=== PATIENT | female | born 2000 | race Caucasian/White ===

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

== ENCOUNTER → 2020-03-04 | Outpatient (CLI) | payer BC ==
[~2020-03-04] MED LIST: ALL10TAB29 PO; ESCI10TA2; PROM25TA12 PO
[2020-03-04 16:40] LABS: BASO % 0.6 % (0.0-1.0); EOS # 0.2 10^3/uL (0.0-0.5); EOS % 2.9 % (0.0-3.0); HEMATOCRIT 40.6 % (36.0-47.0); HEMOGLOBIN 13.7 g/dl (12.0-15.5); LYMPH # 2.4 10^3/uL (1.5-5.0); LYMPH % 36.6 % (24.0-44.0); MEAN CORPUSCULAR HEMOGLOBIN 29.3 pg (27.0-33.0); MEAN CORPUSCULAR HGB CONC 33.7 g/dl (32.0-36.5); MEAN CORPUSCULAR VOLUME 86.9 fl (80.0-96.0); MONO # 0.7 10^3/uL (0.0-0.8); MONO % 11.2 % (0.0-5.0); NEUTROPHILS # 3.1 10^3/uL (1.5-8.5); NEUTROPHILS % 48.5 % (36.0-66.0); PLATELET COUNT, AUTOMATED 325 10^3/uL (150-450); RED BLOOD COUNT 4.67 10^6/uL (4.00-5.40); WHITE BLOOD COUNT 6.5 10^3/uL (4.0-10.0)
[2020-03-04 16:44] LABS: ALBUMIN 4.1 GM/DL (3.2-5.2); ALT/SGPT 20 U/L (12-78); BILIRUBIN,TOTAL 0.7 MG/DL (0.2-1.0); BLOOD UREA NITROGEN 13 MG/DL (7-18); CALCIUM LEVEL 9.6 MG/DL (8.5-10.1); CARBON DIOXIDE LEVEL 26 MEQ/L (21-32); CHLORIDE LEVEL 105 MEQ/L (98-107); CREATININE FOR GFR 0.65 MG/DL (0.55-1.30); FREE T4 1.01 NG/DL (0.78-1.33); GLUCOSE, FASTING 108 MG/DL (70-100); POTASSIUM SERUM 3.8 MEQ/L (3.5-5.1); RHEUMATOID FACTOR QUANT < 10.0 IU/ML (<15.0); SODIUM LEVEL 139 MEQ/L (136-145); TOTAL 25(OH) VITAMIN D 19.6 NG/ML (30.0-100.0); TOTAL PROTEIN 7.5 GM/DL (6.4-8.2)
[2020-03-05 06:13] LABS: H PYLORI QUALITATIVE IgG NEGATIVE (NEGATIVE)
== END ==
LOC: M WUC 13:13
PROVIDERS: ATTEND Physician Assistant
DX: M25.50 Pain in unspecified joint (principal); R10.84 Generalized abdominal pain; R53.83 Other fatigue

== ENCOUNTER → 2020-05-01 | Outpatient (REF) | payer BC ==
[2020-05-01 18:30] LABS: CHLAMYDIA DNA AMPLIFICATION NEGATIVE (NEGATIVE); GC DNA AMPLIFICATION NEGATIVE (NEGATIVE)
== END ==
LOC: M LAB REF 15:52
PROVIDERS: ATTEND Physician Assistant
DX: Z11.3 Encounter for screening for infections with a predominantly sexual mode of transmission (principal)

== ENCOUNTER → 2020-08-06 | Outpatient (REF) | payer BC ==
[~2020-08-06] MED LIST changes: -ALL10TAB29 PO; +CETI-24 PO
[2020-08-06 19:29] LABS: BASO % 0.3 % (0.0-1.0); EOS # 0.2 10^3/uL (0.0-0.5); HEMATOCRIT 40.8 % (36.0-47.0); HEMOGLOBIN 13.2 g/dl (12.0-15.5); LYMPH # 2.8 10^3/uL (1.5-5.0); LYMPH % 37.9 % (24.0-44.0); MEAN CORPUSCULAR HEMOGLOBIN 28.4 pg (27.0-33.0); MEAN CORPUSCULAR HGB CONC 32.4 g/dl (32.0-36.5); MEAN CORPUSCULAR VOLUME 87.9 fl (80.0-96.0); MONO # 0.7 10^3/uL (0.0-0.8); MONO % 9.6 % (0.0-5.0); NEUTROPHILS # 3.6 10^3/uL (1.5-8.5); NEUTROPHILS % 48.9 % (36.0-66.0); PLATELET COUNT, AUTOMATED 379 10^3/uL (150-450); RED BLOOD COUNT 4.64 10^6/uL (4.00-5.40); WHITE BLOOD COUNT 7.4 10^3/uL (4.0-10.0)
[2020-08-06 19:37] LABS: ALT/SGPT 19 U/L (12-78); BILIRUBIN,TOTAL 0.5 MG/DL (0.2-1.0); BLOOD UREA NITROGEN 13 MG/DL (7-18); CALCIUM LEVEL 9.5 MG/DL (8.5-10.1); CARBON DIOXIDE LEVEL 28 MEQ/L (21-32); CHLORIDE LEVEL 106 MEQ/L (98-107); CREATININE FOR GFR 0.59 MG/DL (0.55-1.30); FREE T4 1.06 NG/DL (0.78-1.33); GLUCOSE, FASTING 97 MG/DL (70-100); POTASSIUM SERUM 3.9 MEQ/L (3.5-5.1); SODIUM LEVEL 141 MEQ/L (136-145); TOTAL 25(OH) VITAMIN D 48.2 NG/ML (30.0-100.0); TOTAL PROTEIN 7.2 GM/DL (6.4-8.2)
[2020-08-06 20:16] LABS: HIV 1&2 SCREEN CENTAUR NEGATIVE (NEGATIVE)
== END ==
LOC: M LAB REF 18:59
PROVIDERS: ATTEND Physician Assistant
DX: Z11.3 Encounter for screening for infections with a predominantly sexual mode of transmission (principal)

== ENCOUNTER → 2020-09-01 | Outpatient (REF) | payer BC | LOC: M LAB REF 16:25 | PROVIDERS: ATTEND Physician Assistant | DX: Z32.01 Encounter for pregnancy test, result positive (principal) ==

== ENCOUNTER → 2020-10-01 | Outpatient (REF) | payer BC ==
[2020-10-01 17:17] LABS: HEMATOCRIT 41.5 % (36.0-47.0); HEMOGLOBIN 13.7 g/dl (12.0-15.5); MEAN CORPUSCULAR HEMOGLOBIN 28.7 pg (27.0-33.0); PLATELET COUNT, AUTOMATED 350 10^3/uL (150-450); RED BLOOD COUNT 4.77 10^6/uL (4.00-5.40)
[2020-10-01 18:25] LABS: HIV 1&2 SCREEN CENTAUR NEGATIVE (NEGATIVE)
[2020-10-01 19:27] LABS: CHLAMYDIA DNA AMPLIFICATION NEGATIVE (NEGATIVE); GC DNA AMPLIFICATION NEGATIVE (NEGATIVE)
== END ==
LOC: M PLALAB 13:51
PROVIDERS: ATTEND Advanced Practice Midwife
DX: Z34.01 Encounter for supervision of normal first pregnancy, first trimester (principal); Z3A.00 Weeks of gestation of pregnancy not specified

== ENCOUNTER → 2020-10-29 | Outpatient (CLI) | payer BC | LOC: M PLALAB 15:48 | PROVIDERS: ATTEND Advanced Practice Midwife | DX: Z36.89 Encounter for other specified antenatal screening (principal) ==